=== PATIENT | female | born 1990 | race Caucasian/White ===

== ENCOUNTER 2024-09-20 16:30 | Emergency (ER) | payer SELFPAY ==
[~2024-09-20] VITALS: Ht 157.5 cm; Wt 61.4 kg
[2024-09-20 16:31] VITALS: BP 141/90; PULSE 130; TEMP 97; O2SAT 96
--- NOTE | 2024-09-20 17:05 | Physician Documentation ---
History of Present Illness ~ Chief Complaint: Medical Clearance Stated Complaint: MED CLEARANCE Time Seen by MD: 16:41 HPI 34-year-old female reports ER for medical clearance. Patient was found in his trailer and was brought in for medical clearance. Patient does have a black eye but she states it is old. Patient has a inebriated but is able to answer all questions and notes were person place and time. Denies striking head patient did have blood on the side of her ear. Denies headache. No other complaints at this time Medication Reconciliation Allergies: Coded Allergies: No Known Allergies (Unverified , 09/20/24) Physical Exam Vital Signs: Temperature: 97.0, Source: Temporal, Heart Rate: 130, Respiratory Rate: 16, BP: 141/90, Pulse Oximetry: 96, Weight: 61.360 Physical Exam General: Well developed, well nourished, no distress. HEENT: Atraumatic, normal conjunctiva, moist mucous membranes. Positive for right-sided periorbital ecchymosis. EOMs intact. PERRLA. Neck: Full range of motion, supple. Respiratory: Lungs clear, no respiratory distress. Chest: No accessory muscle use, nontender. Cardiovascular: Regular rate and rhythm. Gastrointestinal: Soft, nontender, nondistended. Bowel sounds present. Extremities: Normal range of motion, nontender, normal capillary refill, no deformity. Back: No midline tenderness, no CVA tenderness. Neurologic: Oriented x4. Distal gross motor and sensory intact all four extremities. Moves all 4 extremities spontaneously. Psychiatric: Normal mood and affect. Skin: Normal color, warm and dry. No edema, no ecchymosis Progress Results/Orders Results/Orders Orders - TARA JOHNSON Ct Head (09/20/24 16:49) Vital Signs 09/20/24 16:31 Temp 97.0 Pulse 130 Resp 16 B/P (MAP) 141/90 Pulse Ox 96 Medical Decision Making Additional info obtained from: old records Findings After detailed discussion and joint medical decision-making, diagnostic and imaging results were discussed with the patient. At this time patient medically cleared in his okay to book in his discharged with law enforcement. Patient was offered a CT scan of the head and she declined it. Risks benefits were discussed with the patient patient verbally consents understanding. ER precautions given. Patient is stable upon discharge. All patient questions answered to satisfaction Differential Dx:Considerations: Include: Other (Intoxication, closed head injury, contusion, orbital contusion) Departure Disposition: HOME / SELF CARE / HOMELESS Impression: Primary Impression: General medical exam Additional Impression: Orbital contusion Condition: Stable Discharge Instructions: Contusion, [id number], Medical Screening Exam Additional Instructions: Patient was medically cleared and okay to book in his discharged with law enforcement Referrals: NO PRIMARY CARE PROVIDER (PCP) Education Educated: Patient Educated regarding: diagnosis, treatment Signature Scribe Signature: None used Attestation: Scribed for Tara Johnson Pa by Tara SANDERS . 09/20/24 17:07 TARA JOHNSON September 20, 2024 17:05
[2024-09-20 17:09] VITALS: RESP 17
== END 2024-09-20 17:21 ==
LOC: ER 16:30
DX: S00.11XA Contusion of right eyelid and periocular area, initial encounter (principal); X58.XXXA Exposure to other specified factors, initial encounter; Y93.89 Activity, other specified; Y92.89 Other specified places as the place of occurrence of the external cause; Y99.8 Other external cause status
CPT/HCPCS: 99283